=== PATIENT | female | born 1965 | race Caucasian/White ===

== ENCOUNTER 2020-12-10 13:16 | Emergency (ER) | payer OTHER, SELFPAY ==
--- NOTE | 2020-12-10 | ECG_ITS ---
Test Reason : CHEST PAIN Blood Pressure : / mmHG Vent. Rate : 079 BPM Atrial Rate : 079 BPM P-R Int : 160 ms QRS Dur : 084 ms QT Int : 414 ms P-R-T Axes : 073 037 058 degrees QTc Int : 474 ms Normal sinus rhythm Possible Left atrial enlargement Borderline ECG When compared with ECG of 09-MAY-2014 10:20, No significant change was found Referred By: Tyrone Lafleur Electronically Signed By:YRIS IRVING MD
[2020-12-10 13:23] VITALS: BP 160/76; PULSE 91; RESP 16; TEMP 36.7; O2SAT 96; BMI 29.9
== END 2020-12-10 15:01 | disposition left against medical advice (07) ==
PROVIDERS: Emergency Provider Emergency Medicine; PCP Internal Medicine
DX: R07.9 Chest pain, unspecified (principal); I20.1 Angina pectoris with documented spasm
CPT/HCPCS: 93005; 99282; 99283

== ENCOUNTER 2022-07-09 03:14 | Emergency (ER) | payer OTHER, SELFPAY ==
[2022-07-09 03:26] VITALS: BP 144/67; PULSE 81; RESP 18; TEMP 36.5; O2SAT 95; BMI 29.3
== END 2022-07-09 05:00 | disposition left against medical advice (07) ==
PROVIDERS: Emergency Provider Emergency Medicine
DX: G89.18 Other acute postprocedural pain (principal)
CPT/HCPCS: 99281

== ENCOUNTER 2023-05-21 19:17 | Emergency (ER) | payer OTHER, SELFPAY ==
--- NOTE | 2023-05-21 19:21 | ED_ITS ---
HPI - General Adult General Chief complaint: General Medical Stated complaint: Reversal of a lleostomy feels somethings wrong Time Seen by Provider: 05/21/23 21:29 Source: patient Mode of arrival: ambulatory Limitations: no limitations History of Present Illness HPI narrative: 58-year-old female status post complicated diverticular disease and complicated colon resection with ileostomy. Patient required ileostomy revision and anastomosis revision multiple times, patient had the last permanent ileostomy placed in the left lower quadrant of the abdomen at [facility] by Dr. Jazmin Padilla. Patient came in today for a concern of seeing a quinn tissue in the stoma of the ileostomy with bleeding from the stoma, no fever, no chills, no internal abdominal pain, otherwise passing stool with no blood, and passing gas. Related Data Allergies Allergy/AdvReac Type Severity Reaction Status Date / Time No Known Allergies Allergy Mild NONE Verified 05/21/23 19:22 Review of Systems Review of Systems: All other systems are reviewed and are negative Constitutional: Reports as per HPI and Reports no additional constitutional complaints Eyes: Reports as per HPI and Reports no additional eye complaints Reports system reviewed and no additional complaints, except as documented Cardiovascular: Reports as per HPI and Reports no additional cardiovascular complaints Respiratory: Reports as per HPI and Reports no additional respiratory complaints Gastrointestinal: Reports as per HPI and Reports no additional gastrointestinal complaints Genitourinary: Reports no additional female genitourinary complaints Musculoskeletal: Reports no additional musculoskeletal complaints Skin/Breast: Reports system reviewed and no additional complaints, except as docu Psychiatric: Reports no additional psychiatric complaints Endocrine: Reports no additional endocrine complaints Hematologic/Lymphatic: Reports no additional hematologic/lymphatic complaints Allergic/Immunologic: Reports no additional allergic/immunologic complaints Reports system reviewed and no additional complaints, except as documented and Reports Abnormal speech present [facility] Social History Social History Advance Directives: No Advance Directives Information Provided: No Physical Exam ED Vital Signs: Vital Signs - 24 hr 05/21/23 19:22 05/21/23 21:47 Temperature 96.8 F 98.2 F Pulse Rate 85 88 Respiratory Rate 18 20 Blood Pressure 154/79 H 168/85 H Pulse Oximetry 97 98 Oxygen Delivery Method Room Air Room Air BMI result Body Mass Index 32.9 vital signs have been reviewed as appeared to be correct. Blood pressure normal. Heart rate normal. Respiration rate normal. Temperature normal. Oxygen saturation normal. Appearance: Alert. Oriented X3. No acute distress. Head: Normal external exam. Normocephalic. Atraumatic. No Pacheco signs noted. No raccoon eyes noted Eyes: PERRLA. EOMI. Conjunctiva and sclera normal. Eyelids normal. ENT: TM's Normal. Pharynx normal. Uvula midline. Moist mucous membranes. No trismus noted. No drooling noted. No muffled voice noted. Neck: Normal inspection. Neck supple. FROM. No adenopathy. Thyroid Normal. No meningeal signs. No neck mass noted. CVS: Normal heart rate and rhythm. Heart sound normal. Pulses normal throughout. Respiratory: No respiratory distress. Painless inspiration. Breath sounds normal. No wheezes/rales/rhonchi noted. Chest nontender. No accessory muscle usage noted or decreased air movement noted. Abdomen: Soft and nontender , left lower quadrant DIVERTING COLOSTOMY stoma with dark red and darker pages, with quinn granulation tissue in the inferior border of the stoma, no active bleeding, ileostomy bag is full of gas and stool, no abdominal tenderness, no tenderness around the stoma.. Bowel sounds normal in all 4 quadrants. No distention noted. No organomegaly noted. No visible injury noted. Back: No CVA tenderness. Full range of motion noted. Skin: Skin warm and dry. Normal skin color. Normal skin turgor. No rashes/lesions/lacerations noted. Extremities: No lower extremity edema. Extremities exhibit normal range of motion. Extremities nontender. Neuro: Oriented X 3. Cranial nerve exam: II-XII are grossly intact No motor deficit. No sensory deficit. Reflexes normal. Course Course Course Narrative: This is a rapid medical exam: Additional HPI, ROS, PE not included below will be deferred to primary provider. Patient is a 58-year-old female with recent colostomy revision on 05/04 at the [facility]. Also had 3 prior surgeries at [facility]. Has an appointment with the special education curriculum specialist in [place] on 05/28 but felt was unable to wait. Reports abdominal numbness and states it doesn't look right. Area not visualized in triage as patient has ostomy bag on and limited supplies with her. She reports stringy, grayish yellow discharge from the ostomy 2-3 days ago. Reports has never had that with prior ostomies. Has not contacted her surgeon at the [facility]. Plan: labs Reevaluation(s) Reevaluation #1: left lower quadrant colostomy done at [facility] by Dr. Wu, the case was discussed with Dr. Bernard covering for Dr. Wu at [facility] who recommended to discharge the patient home if there is no abdominal tenderness, and contact tomorrow. plan was discussed with the patient who agreed on the plan. Time: 22:21 Medical Decision Making Differential Diagnosis Differential Diagnoses: The differential diagnosis associated with the presentation includes ( Colostomy complication, stoma ischemia, electrolyte abnormality, severe anemia, SBO.) Admission/Observation Consideration of admission/observation: Escalation of care including admission/observation considered Consult Healthcare Provider Management of the patient was discussed with: Patient Transport Orderly (Dr. Bernard at [facility]) Lab Data MDM Lab Attestation statement: I reviewed the patient's lab results. 05/21/23 19:55 05/21/23 19:55 Labs: Lab Results 05/21/23 05/21/23 Range/Units 19:55 19:55 WBC 7.8 (4.8-10.8) X10*3/uL RBC 3.93 L (4.20-5.50) X10*6/uL Hgb 11.2 L (12.0-16.0) g/dl Hct 35.4 L (37.0-47.0) % MCV 90.1 (80.0-98.0) fL MCH 28.5 (27.0-33.0) pg MCHC 31.6 (31.0-35.0) g/dl RDW 13.0 (11.0-16.0) % Plt Count 487 H (160-400) X10*3/uL MPV 9.8 (9.4-12.3) fL Immature Gran % (Auto) 0.3 (0.0-0.4) % Neut % (Auto) 58.9 (45-73) % Lymph % (Auto) 31.9 (20-40) % [place] % (Auto) 6.1 (2-11) % Eos % (Auto) 2.3 (0-4) % Baso % (Auto) 0.5 (0-2) % Lymph # (Auto) 2.5 (1.2-4.9) X10*3/uL [place] # (Auto) 0.5 (0.1-1.2) X10*3/uL Eos # (Auto) 0.2 (0.0-0.4) X10*3/uL Baso # (Auto) 0.0 (0.0-0.2) X10*3/uL Abs Immat Gran (auto) 0.02 (0.00-0.03) X10*3/uL Absolute Neuts (auto) 4.6 (2.0-8.3) x10*3/uL Absolute Nucleated RBC 0.000 (0.0-0.012) X10*3/uL Nucleated RBC % (auto) 0.0 (0.0-0.2) /100WBC Sodium 144 (135-145) mmol/L Potassium 3.8 (3.3-5.1) mmol/L Chloride 109 H (96-108) mmol/L Carbon Dioxide 23 (22-29) mmol/L Anion Gap 16 (12-20) BUN 12 (9-16) mg/dL Creatinine 0.87 (0.5-1.4) mg/dL Estim Creat Clear Calc 77.0 Estimated GFR > 60 Random Glucose 117 H (60-115) mg/dL Calcium 9.2 (8.4-10.2) mg/dL Total Bilirubin 0.3 (0.0-1.0) mg/dL AST 26 (5-31) U/L ALT 51 H (0-31) U/L Alkaline Phosphatase 78 (39-117) U/L Total Protein 7.2 (6.5-8.0) g/dL Albumin 4.1 (3.5-5.0) g/dL Discharge Plan Discharge Clinical Impression: Other complications of colostomy Patient Disposition: Home, Self-Care Instructions: Colostomy Care (ED) Additional Instructions: as we discussed follow with Dr. Wu tomorrow. Interventions: ED Discharge Assessment Last Done: 05/21/23 22:33 Discharge Date/Time: 05/21/23 22:34
[2023-05-21 19:22] VITALS: BP 154/79; PULSE 85; RESP 18; TEMP 36; O2SAT 97; BMI 32.9
[2023-05-21 19:59] LABS: MANUAL DIFF FLAG NO
[2023-05-21 20:02] LABS: Basophils Percent Auto 0.5 % (0-2); Eosinophils Absolute Auto 0.2 X10*3/uL (0.0-0.4); Eosinophils Percent Auto 2.3 % (0-4); Hematocrit 35.4 % (37.0-47.0); Hemoglobin 11.2 g/dl (12.0-16.0); Imm Gran Abs Auto 0.02 X10*3/uL (0.00-0.03); Imm Gran Pct Auto 0.3 % (0.0-0.4); Lymphocytes Absolute Auto 2.5 X10*3/uL (1.2-4.9); Lymphocytes Percent Auto 31.9 % (20-40); Mean Corpuscular HGB Conc 31.6 g/dl (31.0-35.0); Mean Corpuscular Hemoglobin 28.5 pg (27.0-33.0); Mean Corpuscular Volume 90.1 fL (80.0-98.0); Mean Platelet Volume 9.8 fL (9.4-12.3); Monocytes Absolute Auto 0.5 X10*3/uL (0.1-1.2); Monocytes Percent Auto 6.1 % (2-11); Neutrophils Absolute Auto 4.6 x10*3/uL (2.0-8.3); Neutrophils Percent Auto 58.9 % (45-73); Platelet Count 487 X10*3/uL (160-400); Red Blood Count 3.93 X10*6/uL (4.20-5.50); White Blood Count 7.8 X10*3/uL (4.8-10.8)
[2023-05-21 20:38] LABS: Alanine Aminotransferase 51 U/L (0-31); Albumin Level 4.1 g/dL (3.5-5.0); Alkaline Phosphatase 78 U/L (39-117); Anion Gap 16 (12-20); Aspartate Amino Transferase 26 U/L (5-31); Bilirubin Total 0.3 mg/dL (0.0-1.0); Blood Urea Nitrogen 12 mg/dL (9-16); Calcium 9.2 mg/dL (8.4-10.2); Carbon Dioxide 23 mmol/L (22-29); Chloride 109 mmol/L (96-108); Estimated Glomerular Filt Rate > 60; Glucose Random 117 mg/dL (60-115); Potassium 3.8 mmol/L (3.3-5.1); Sodium 144 mmol/L (135-145); Total Protein 7.2 g/dL (6.5-8.0)
[2023-05-21 21:47] VITALS: BP 168/85; PULSE 88; RESP 20; TEMP 36.8; O2SAT 98
== END 2023-05-21 22:34 | disposition home or self-care (01) ==
PROVIDERS: Registered Nurse Emergency; Emergency Provider Emergency Medicine; PCP Internal Medicine
DX: K94.03 Colostomy malfunction (principal); Z79.899 Other long term (current) drug therapy
CPT/HCPCS: 36415; 80053; 85025; 99283

== ENCOUNTER 2023-06-26 14:49 | Outpatient (AMB) | payer OTHER, SELFPAY ==
--- NOTE | 2023-06-26 07:56 | MHC.OFFVIS ---
Intake Intake Visit Reasons: LDCT SD Allergies No Known Allergies Allergy (Mild, Verified 05/21/23 19:22) NONE HPI LDCT SD HPI Details Initial visit for this 58yo former smoker with a 35PYH. Patient has been smoking since age 15 for 36 years at 1ppd. She quit [id number] then restarted due to stressors. She quit smoking 12/06/21. . Denies marijuana use. Denies second hand smoke exposure. Denies exposure to chemicals or substances like asbestos. . Denies known family history of lung cancer. Denies personal history of cancers. . Denies chest CT in last year. Was in [facility] LDCT program prior. 06/03/19 LDCT = Lung RADS 2 05/03/22 Chest CTA noted 3mm RUL/apex nodule. . Denies recent travel outside the [place]. Denies recent respiratory illness or recent hospitalization for respiratory issues. Denies testing positive for COVID. Admits receiving COVID Vaccine. x 3. . Denies fever, chills, new/worsening cough, hemoptysis, hoarseness or dysphagia. Denies significant chest pain, significant dyspnea or unintentional weight loss. Patient Lung Cancer Screening Questionnaire reviewed with patient by provider. . Shared Decision Making Completed. Patient meets criteria. Discussed in detail with patient, the risk vs benefit of LDCT screening. Patient consents to proceed with scan. Discussed and encouraged continued smoking cessation. [facility] Medical History (Updated 06/26/23 @ 15:12 by Annalise Hameed PA-C) Personal history of nicotine dependence Ileostomy in place Hyperlipidemia Vitamin D deficiency Surgical History (Updated 06/26/23 @ 15:09 by Annalise Hameed PA-C) History of tubal ligation History of colon resection History of ileostomy Social History (Updated 06/26/23 @ 15:12 by Annalise Hameed PA-C) Patient Tobacco Use Status: Former Tobacco user Quit Date: 12/06/2021 Years Smoked: (former smoker - onset 15yo, 1ppd x 36yrs, 35pyh - quit 11/2021) Assessment & Plan Assessment & Plan (1) Nicotine dependence, cigarettes, uncomplicated: Comment: (former smoker - onset 15yo, 1ppd x 42yrs, 40pyh - quit 11/2021) Code(s): F17.210 - Nicotine dependence, cigarettes, uncomplicated Plan: (2) Personal history of nicotine dependence: Comment: (former smoker - onset 15yo, 1ppd x 36yrs, 35pyh - quit 11/2021) Code(s): Z87.891 - Personal history of nicotine dependence Plan: - SDM visit completed today in office. - Patient meets criteria for LDCT for lung cancer screening purposes and is asymptomatic. - Smoking cessation counseling offered. Patients can always call [phone]. - Will arrange for a LDCT scan of the chest for screening purposes at [facility]. - Risks, benefits, and alternatives were discussed in detail and the patient agrees to proceed. - Risks discussed include but are not limited to: radiation exposure, anxiety during testing and while awaiting results, false negatives, false positives and possibility of additional intervention such as further imaging or surgical procedures for benign disease. - Benefits are obviously detection of lung cancer at an early stage which can lead to improved outcomes. - Discussed the importance of screening program compliance with adherence to yearly LDCT scan as scheduled - or sooner interval scans for personalized screening regimen. - Discussed follow up plan. Our office will send a letter discussing results and if needed set up phone call and office visit based on CT findings. - Patient educated on results categorization and the management decisions for suspicious findings potentially found on the screening LDCT scan. Any patient with a Lung RADS score of 3 or 4 will be reviewed by a multidisciplinary team at [facility] to form a plan of action in regards to scan findings. - If further work up is warranted for a suspicious lung finding this will be followed by the Lung Cancer Screening program in conjunction with the Thoracic Surgery Department at [facility]. - A copy of the office note and LDCT will be sent to the patient's PCP - as well as documentation on any associated further plans of care. - Incidental findings on LDCT are the PCP's responsibility. These findings are indicated with an S finding on the LDCT Assessment. A note discussing the findings will be sent to the PCP who is then responsible for further management. - All questions answered.? Coding Level of Care Code Lung Cancer Screening G0296 Diagnoses Nicotine dependence, cigarettes, uncomplicated F17.210 Personal history of nicotine dependence Z87.891
== END 2023-06-26 15:11 | disposition home or self-care (01) ==
PROVIDERS: Visit Provider Physician Assistant Medical
DX: F17.210 Nicotine dependence, cigarettes, uncomplicated (principal); Z87.891 Personal history of nicotine dependence
CPT/HCPCS: G0296

== ENCOUNTER 2023-06-26 15:13 | Outpatient (REF) | payer OTHER, SELFPAY ==
--- NOTE | ~2023-06-26 | CT_ITS ---
EXAMINATION: CT CHEST SCREENING CLINICAL INFORMATION: History of nicotine dependence; 72 pack year smoking history. COMPARISON: Chest radiograph dated 05/09/2014. TECHNIQUE: Multidetector volumetric CT imaging of the chest is performed without contrast using low dose technique. Additional 2D coronal and sagittal reformatted images and axial 3D maximum intensity projection (MIP) images are generated on the CT workstation. This CT examination was performed using dose optimization techniques as appropriate, variously including the following: *Automated exposure control *Adjustment of mA and/or kV according to patient size (this includes techniques or standardized protocols for targeted exams where dose is matched to indication/reason for exam; i.e. extremities or head) *Use of iterative reconstruction technique DLP: 50 mGy-cm FINDINGS: LUNGS: The lungs are clear with no evidence of inflammation or nodules. There is minimal paraseptal emphysematous change. MEDIASTINUM: The thyroid is unremarkable. There is no thoracic aortic aneurysm. There are mild atherosclerotic calcifications of the great vessel origins and thoracic aorta. No mediastinal or hilar lymphadenopathy is seen. CORONARY ARTERY CALCIFICATION: None visualized on this study. PLEURA: There is no pleural effusion. No pleural mass or thickening. AXILLA: No lymphadenopathy. UPPER ABDOMEN: Unremarkable OSSEOUS STRUCTURES: There is multi-level thoracic spondylosis. No acute or aggressive osseous abnormality is seen. CT/CT lung screening IMPRESSION: There is minimal paraseptal emphysematous change. Otherwise, unremarkable examination. ASSESSMENT: Lung-RADS category RECOMMENDATION:
== END 2023-06-26 15:14 | disposition home or self-care (01) ==
LOC: HO.CT 15:13
PROVIDERS: PCP Internal Medicine; Visit Provider Physician Assistant Medical
DX: Z12.2 Encounter for screening for malignant neoplasm of respiratory organs (principal); Z87.891 Personal history of nicotine dependence
CPT/HCPCS: 71271; G0296

== ENCOUNTER 2024-01-27 21:37 | Emergency (ER) | payer OTHER, SELFPAY ==
--- NOTE | ~2024-01-27 | CT_ITS ---
EXAMINATION: CT ABDOMEN AND PELVIS WITH CONTRAST CLINICAL INFORMATION: Right lower quadrant pain with nausea and vomiting COMPARISON: None available. TECHNIQUE: Multidetector volumetric images were obtained from the superior aspect of the liver through the pubic symphysis following administration 85 mL of Omnipaque 350 intravenous contrast. Sagittal and coronal reformatted images were obtained on the technologist's workstation. Oral contrast: No This CT examination was performed using dose optimization techniques as appropriate, variously including the following: *Automated exposure control *Adjustment of mA and/or kV according to patient size (this includes techniques or standardized protocols for targeted exams where dose is matched to indication/reason for exam; i.e. extremities or head) *Use of iterative reconstruction technique DLP: 633 mGy-cm FINDINGS: LUNG BASES: The visualized lung bases are unremarkable. LIVER, GALLBLADDER, AND BILIARY TREE: The liver is enlarged measuring at least 20 cm in greatest length with decreased attenuation consistent with hepatic steatosis. No focal hepatic lesion or biliary ductal dilatation is present. The gallbladder is unremarkable with no evidence of radiopaque gallstones, gallbladder wall thickening, or obvious pericholecystic inflammatory changes. PANCREAS: Unremarkable. SPLEEN: Unremarkable. ADRENAL GLANDS: Unremarkable. KIDNEYS AND URETERS: The kidneys are normal in size, shape, and attenuation. No hydronephrosis, hydroureter, or calculi seen. No perinephric stranding. A benign right-sided mid to lower pole 0.5 cm Bosniak class I renal cyst is noted which requires no additional imaging or follow up. No solid renal masses are seen. There is a small area in the right kidney lack of cortex seen medially of questionable significance. This could be related to a junctional cortical defect. BLADDER: Unremarkable. GASTROINTESTINAL TRACT: A low rectal anastomosis is present. A colostomy is present in the left lower quadrant along with an ileostomy. A small amount of fluid is seen around the exiting bowel in the abdominal wall. Small bowel anastomosis is present in the right mid pelvis (3:54). There is no evidence of bowel obstruction. The appendix is normal. ABDOMINAL WALL: No significant hernia is appreciated. Tiny epigastric hernia seen containing only fat. Please see discussion above regarding left lower quadrant ostomy. LYMPH NODES: No retroperitoneal lymphadenopathy. There is a small ill-defined area of inflammation/streaky density seen in the greater omentum in the right lower quadrant of questionable significance. VASCULAR: Unremarkable. PELVIC VISCERA: The uterus and adnexa are unremarkable. OSSEOUS STRUCTURES: Unremarkable. CT/CT abdomen pelvis w IV con IMPRESSION: 1. A cause for the patient's right lower quadrant pain has not been found. The appendix is normal. 2. Incidental note made of an enlarged fatty liver, left lower quadrant colostomy and ileostomy with small amount of fluid around the exiting bowel in the abdominal wall. 3. Small ill-defined area of inflammation/streaky density seen in the greater omentum in the right lower quadrant of questionable significance. Fleischner guidelines were followed.
[2024-01-27 21:48] VITALS: BP 179/89; PULSE 87; RESP 18; TEMP 37.1; O2SAT 99; BMI 32.4
[2024-01-27 22:16] LABS: MANUAL DIFF FLAG NO
[2024-01-27 22:18] LABS: Basophils Absolute Auto 0.1 X10*3/uL (0.0-0.2); Basophils Percent Auto 0.4 % (0-2); Eosinophils Absolute Auto 0.2 X10*3/uL (0.0-0.4); Eosinophils Percent Auto 1.8 % (0-4); Hematocrit 42.3 % (37.0-47.0); Hemoglobin 14.3 g/dl (12.0-16.0); Imm Gran Abs Auto 0.03 X10*3/uL (0.00-0.03); Imm Gran Pct Auto 0.3 % (0.0-0.4); Lymphocytes Absolute Auto 3.4 X10*3/uL (1.2-4.9); Lymphocytes Percent Auto 28.9 % (20-40); Mean Corpuscular HGB Conc 33.8 g/dl (31.0-35.0); Mean Corpuscular Hemoglobin 28.5 pg (27.0-33.0); Mean Corpuscular Volume 84.4 fL (80.0-98.0); Mean Platelet Volume 9.8 fL (9.4-12.3); Monocytes Absolute Auto 0.7 X10*3/uL (0.1-1.2); Monocytes Percent Auto 5.7 % (2-11); Neutrophils Absolute Auto 7.3 x10*3/uL (2.0-8.3); Neutrophils Percent Auto 62.9 % (45-73); Platelet Count 346 X10*3/uL (160-400); Red Blood Count 5.01 X10*6/uL (4.20-5.50); Red Cell Distribution Width 12.4 % (11.0-16.0); White Blood Count 11.6 X10*3/uL (4.8-10.8)
[2024-01-27 22:30] LABS: Alanine Aminotransferase 54 U/L (0-31); Albumin Level 4.4 g/dL (3.5-5.0); Alkaline Phosphatase 73 U/L (39-117); Anion Gap 15 (12-20); Aspartate Amino Transferase 25 U/L (5-31); Bilirubin Total 0.3 mg/dL (0.0-1.0); Blood Urea Nitrogen 17 mg/dL (9-16); Calcium 9.4 mg/dL (8.4-10.2); Carbon Dioxide 25 mmol/L (22-29); Chloride 105 mmol/L (96-108); Creatinine Clr Calc Pharmacy 74.9; Estimated Glomerular Filt Rate > 60; Glucose Random 108 mg/dL (60-115); Lipase 28 U/L (8-78); Potassium 3.8 mmol/L (3.3-5.1); Sodium 141 mmol/L (135-145); Total Protein 7.6 g/dL (6.5-8.0)
--- NOTE | 2024-01-27 23:29 | MHC.EDTECH ---
patient not able to give urine sample at this time .
[2024-01-27 23:48] LABS: Appearance Urine Cloudy; Color Urine Yellow; Glucose Urine UA Negative (Negative); Leukocyte Esterase Urine Large (3+) (Negative); Nitrite Urine Negative (Negative); PH 5.5 (5.0-9.0); Specific Gravity - Urine 1.015 (1.005-1.025); UMIC TRIGGER UACC YES; Urine Blood Negative (Negative); Urine Ketones Negative (Negative); Urine Protein Negative (Neg-Trace)
[2024-01-27 23:53] LABS: Bacteria Urine None Seen (None Seen); Hyaline Casts Urine 0-2 /LPF (0-2); RBC Urine 0-2 /HPF (0-2); Squamous Epithelial Cell Urine 0-2 /HPF (0-2); UACC Culture Trigger YES; WBC Urine >50 /HPF (0-5)
[2024-01-28 01:27] VITALS: BP 158/85; PULSE 86; RESP 16; TEMP 36.8; O2SAT 93
[2024-01-28 04:50] VITALS: BP 151/92; PULSE 85; RESP 20; TEMP 36.5; O2SAT 96
[2024-01-28 06:15] VITALS: BP 130/61; PULSE 81; RESP 17; TEMP 36.7; O2SAT 93
--- NOTE | 2024-01-28 06:55 | PC.NURSE ---
pt report abdd pain that felt like muscle strain. pain has since resolved.
--- NOTE | 2024-01-28 07:06 | ED_ITS ---
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 She notes no change in colostomy. The pain did subside around 230am after she released a fair amount of liquid into her ostomy. She has never had an SBO. NO urinary symptoms, no hx of stones. MD elicited complaint: abdominal pain Pertinent past history: diverticulitis Onset (ago): day(s) (day or two) Pain Consistency: colicky Location: periumbilical, RUQ and RLQ Severity: moderate Quality: cramping Radiation: none Migration to: no migration Exacerbating factors: nothing Relieving factors: bowel movement Associated symptoms: nausea and vomiting Related Data Previous Rx's ?Medication ?Instructions ?Recorded cefuroxime axetil 250 mg tablet 250 mg PO BID 7 days #14 tabs 01/28/24 ondansetron 4 mg disintegrating 4 mg PO Q8H PRN nausea and 01/28/24 tablet vomiting #20 tabs Allergies Allergy/AdvReac Type Severity Reaction Status Date / Time No Known Allergies Allergy Mild NONE Verified 01/27/24 21:55 Review of Systems Review of Systems Constitutional : No Weight loss, No Fever, No Chills ENT/Mouth : No sore throat, No Rhinorrhea Eyes: No Swelling, No Redness Cardiovascular : No Chest Pain, No SOB, NoEdema Respiratory : No Cough, No Sputum, No Wheezing Gastrointestinal : Positive Nausea, Positive Vomiting, no Diarrhea, positive abdominal Pain, No Hematochezia, No Melena Genitourinary : No Dysuria, No Urinary Frequency, No Hematuria, No Urgency Musculoskeletal : No joint pain, No Myalgias, No Joint Swelling Skin : No Skin Lesions, No rash Neuro : No Weakness, No Numbness, No Dizziness, No Headache All other systems reviewed and are negative. [facility] Past Medical History Attestation statement: The following information was validated with the patient. Source: old records reviewed Medical History Personal history of nicotine dependence Ileostomy in place Hyperlipidemia Vitamin D deficiency Surgical History History of tubal ligation History of colon resection History of ileostomy Social History Social History Patient Tobacco Use Status: Former Tobacco user Quit Date: 12/06/2021 Years Smoked: (former smoker - onset 15yo, 1ppd x 36yrs, 35pyh - quit 11/2021) Smoked in Last 30 Days: No Use of substances other than those prescribed or required for medical reasons: No Advance Directives: No Advance Directives Information Provided: Yes Physical Exam ED Vital Signs: Vital Signs - 24 hr 01/27/24 21:48 01/28/24 01:27 01/28/24 04:50 Temperature 98.7 F 98.3 F 97.7 F Pulse Rate 87 86 85 Respiratory Rate 18 16 20 Blood Pressure 179/89 H 158/85 H 151/92 H Pulse Oximetry 99 93 96 Oxygen Delivery Method Room Air Room Air Room Air 01/28/24 06:15 01/28/24 10:39 Temperature 98.0 F 97.9 F Pulse Rate 81 71 Respiratory Rate 17 17 Blood Pressure 130/61 109/68 Pulse Oximetry 93 95 Oxygen Delivery Method Room Air Room Air BMI result Body Mass Index 32.4 Appearance: Alert. Oriented X3. No acute distress. Eyes: Pupils equal, round and reactive to light. ENT: Pharynx normal. Neck: Normal inspection. Neck supple. CVS: Normal heart rate and rhythm. Pulses normal. Respiratory: No respiratory distress. Breath sounds normal. Abdomen: Soft and mild R sided abdominal pain ostomy has fluid in it no ttp at site Skin: Skin warm and dry. Normal skin color. Normal skin turgor. Extremities: No lower extremity edema. No calf ttp Neuro: Oriented X 3. No motor deficit. No sensory deficit. Medical Decision Making Medical Decision Making MDM Narrative: 58yo female with PMH of HTN prior diverticulitis resulting in surgery and inability to reverse shu so she has colostomy in place here with c/o intermittent abdominal pain n/v and pain resolved with liquid stool - no prior hx of SBO at this time will need labs, IVF, IV dilaudid for pain, CT scan for renal colic vs diverticulitis vs obstruction, UA is positive so cefriaxone ordered at 745am given concern for infection. Differential Diagnosis Differential Diagnoses: The differential diagnosis associated with the presentation includes diverticulitis, SBO, renal colic Admission/Observation Consideration of admission/observation: Escalation of care including admission/observation considered pain resolved ostomy patent no acute findings on CT scan no vomiting tolerating PO no signs of sepsis feels much better stable for DC Lab Data MDM Lab Attestation statement: I reviewed the patient's lab results. 01/27/24 22:11 01/27/24 22:11 Labs: Lab Results 01/27/24 01/27/24 01/28/24 Range/Units 22:11 23:41 07:47 WBC 11.6 H (4.8-10.8) X10*3/uL RBC 5.01 D (4.20-5.50) X10*6/uL Hgb 14.3 D (12.0-16.0) g/dl Hct 42.3 (37.0-47.0) % MCV 84.4 (80.0-98.0) fL MCH 28.5 (27.0-33.0) pg MCHC 33.8 (31.0-35.0) g/dl RDW 12.4 (11.0-16.0) % Plt Count 346 D (160-400) X10*3/uL MPV 9.8 (9.4-12.3) fL Immature Gran % (Auto) 0.3 (0.0-0.4) % Neut % (Auto) 62.9 (45-73) % Lymph % (Auto) 28.9 (20-40) % [place] % (Auto) 5.7 (2-11) % Eos % (Auto) 1.8 (0-4) % Baso % (Auto) 0.4 (0-2) % Lymph # (Auto) 3.4 (1.2-4.9) X10*3/uL [place] # (Auto) 0.7 (0.1-1.2) X10*3/uL Eos # (Auto) 0.2 (0.0-0.4) X10*3/uL Baso # (Auto) 0.1 (0.0-0.2) X10*3/uL Abs Immat Gran (auto) 0.03 (0.00-0.03) X10*3/uL Absolute Neuts (auto) 7.3 (2.0-8.3) x10*3/uL Absolute Nucleated RBC 0.000 (0.0-0.012) X10*3/uL Nucleated RBC % (auto) 0.0 (0.0-0.2) /100WBC Sodium 141 (135-145) mmol/L Potassium 3.8 (3.3-5.1) mmol/L Chloride 105 (96-108) mmol/L Carbon Dioxide 25 (22-29) mmol/L Anion Gap 15 (12-20) BUN 17 H (9-16) mg/dL Creatinine 0.92 (0.5-1.4) mg/dL Estim Creat Clear Calc 74.9 Estimated GFR > 60 Random Glucose 108 (60-115) mg/dL Lactic Acid 1.0 (0.5-2.0) mmol/L Calcium 9.4 (8.4-10.2) mg/dL Total Bilirubin 0.3 (0.0-1.0) mg/dL AST 25 (5-31) U/L ALT 54 H (0-31) U/L Alkaline Phosphatase 73 (39-117) U/L Total Protein 7.6 (6.5-8.0) g/dL Albumin 4.4 (3.5-5.0) g/dL Lipase 28 (8-78) U/L Urine Color Yellow Urine Appearance Cloudy Urine pH 5.5 (5.0-9.0) Ur Specific [place] 1.015 (1.005-1.025) Urine Protein Negative (Neg-Trace) mg/dL Urine Glucose (UA) Negative (Negative) mg/dL Urine Ketones Negative (Negative) mg/dL Urine Blood Negative (Negative) Urine Nitrite Negative (Negative) Ur Leukocyte Esterase Large (3+) H (Negative) Urine RBC 0-2 (0-2) /HPF Urine WBC >50 H (0-5) /HPF Ur Squamous Epith Cells 0-2 (0-2) /HPF Urine Bacteria None Seen (None Seen) Hyaline Casts 0-2 (0-2) /LPF Independent Interpretation I performed an independent interpretation of an: CT Scan (inflammation but no focal findings) Radiology Impression Discussion of test interpretation with radiology: I have reviewed the radiologist's reading. External Record Review External record reviewed: Inpatient record Prescription Management I considered prescription management with: Antibiotic Medications Administered Discontinued Medications Generic Name Dose Route Start Last Admin Trade Name Laura PRN Reason Stop Dose Admin Hydromorphone HCl 0.5 mg 01/28/24 07:06 01/28/24 08:20 Hydromorphone Hcl 0.5 Mg/0.5 Ml Syringe IVPUSH 01/28/24 07:07 0.5 mg ONCE ONE Administration Protocol Sodium Chloride 1,000 mls @ 999 mls/hr 01/28/24 07:15 01/28/24 09:26 Ns IV 01/28/24 08:15 Infused .Q1H1M LISANDRO Infusion Iohexol 100 ml 01/28/24 08:49 01/28/24 08:49 Iohexol 350 Mg/Ml 100 Ml Infus..Btl IV 01/28/24 08:50 85 ml ONCE ONE Administration Ondansetron HCl 4 mg 01/28/24 07:06 01/28/24 08:20 Ondansetron Hcl 4 Mg/2 Ml Vial IVPUSH 01/28/24 07:07 4 mg ONCE ONE Administration Discharge Plan Discharge Clinical Impression: Acute UTI Abdominal pain Qualifiers: Abdominal location: right lower quadrant Qualified Code(s): R10.31 - Right lower quadrant pain Patient Disposition: Home, Self-Care Instructions: Urinary Tract Infection in Women (ED), Abdominal Pain (ED) Additional Instructions: return for worsening pain, fevers, vomiting, inability to eat or drink, unable to pass stool or any other concerns. start oral antibiotic tomorrow morning 1. A cause for the patient's right lower quadrant pain has not been found. The appendix is normal. 2. Incidental note made of an enlarged fatty liver, left lower quadrant colostomy and ileostomy with small amount of fluid around the exiting bowel in the abdominal wall. INFLAMMATION 3. Small ill-defined area of inflammation/streaky density seen in the greater omentum in the right lower quadrant of questionable significance INFLAMMATION Prescriptions: New cefuroxime axetil 250 mg tablet 250 mg PO BID 7 Days Qty: 14 0RF ondansetron 4 mg tablet,disintegrating 4 mg PO Q8H PRN (Reason: nausea and vomiting) Qty: 20 0RF Stand Alone Forms: Work/School Release Print Language: Citizen Of [place]
[2024-01-28] MEDS: 0.9 % Sodium Chloride 1,000 ML 999 ML IV (08:18)
[2024-01-28] MEDS: HYDROmorphone HCl 0.5 MG/0.5 ML SYRINGE IVPUSH (08:20)
[2024-01-28] MEDS: ondansetron HCL 4 MG/2 ML VIAL IVPUSH (08:20)
[2024-01-28] MEDS: iohexoL 350 MG/ML 100 ML INFUS..BTL IV (08:49)
--- NOTE | 2024-01-28 09:28 | PC.NURSE ---
LATE ENTRY: 20g iv inserted L forearm. fluids and meds given as documented. abd scan done.
[2024-01-28 10:39] VITALS: BP 109/68; PULSE 71; RESP 17; TEMP 36.6; O2SAT 95
[2024-01-28] MEDS: cefTRIAXone sodium 1 GM in 0.9 % Sodium Chloride 50 ML IV (11:13)
[2024-01-28 12:28] VITALS: BP 127/67; PULSE 71; RESP 18; TEMP 36.4; O2SAT 95
== END 2024-01-28 12:28 | disposition home or self-care (01) ==
PROVIDERS: Emergency Provider Emergency Medicine; PCP Internal Medicine
DX: N39.0 Urinary tract infection, site not specified (principal); R10.32 Left lower quadrant pain; R11.2 Nausea with vomiting, unspecified; R10.11 Right upper quadrant pain; Z79.899 Other long term (current) drug therapy
CPT/HCPCS: 36415; 74177; 80053; 81001; 83605; 83690; 85025; 87040; 87086; 96361; 96365; 96375; 99284; J0696; J1170; J2405; Q9967